=== PATIENT | male | born 1945 | race Two or more races ===

== ENCOUNTER 2021-12-04 10:00 | Observation (INO) | payer MEDICARE ==
[~2021-12-04] VITALS: Ht 165.1 cm; Wt 90.0 kg
--- NOTE | 2021-12-04 10:13 | PHYS DOC ---
Adult General Chief Complaint Chief Complaint: CHEST PAIN HPI HPI Patient is a 76 year old male who presents with chest pressure. Patient has history of CABG many years earlier. He comes to the ER today for evaluation of chest heaviness which she has been having over the last week. Heaviness is intermittent and he has not been able to identify any aggravating or alleviating factors. No radiation of the discomfort. Also complains of some worsening lower extremity edema but no dyspnea on exertion or orthopnea. Takes aspirin every day and already took his medications today. Does not currently complain of chest pain or heaviness during the initial interview. No fever, cough, chills Review of Systems Review of Systems Constitutional: Denies fever or chills Eyes: Denies change in visual acuity HENT: Denies nasal congestion Respiratory: Denies cough or shortness of breath Cardiovascular: No additional information not addressed in HPI GI: Denies abdominal pain, nausea : Denies dysuria or hematuria Musculoskeletal: Denies back pain Integument: Denies rash or skin lesions Neurologic: Denies headache Endocrine: Denies All other systems were reviewed and found to be within normal limits, except as documented in this note. Allergies Allergies Allergies Coded Allergies Type Severity Reaction Last Updated Verified No Known Drug Allergies 12/04/21 No Physical Exam Physical Exam Constitutional: Well developed, well nourished, no acute distress, non-toxic appearance HENT: Moist mucous membranes, nares patent, Eyes: PERRLA, EOMI Neck: Normal range of motion, Cardiovascular:Heart rate regular rhythm, no murmur Lungs & Thorax: Bilateral breath sounds clear to auscultation Abdomen: Bowel sounds normal, soft, no tenderness Skin: Warm, dry, no erythema, no rash Back: Normal ROM Extremities: No tenderness, no cyanosis, no clubbing, ROM intact, 1+ pitting edema bilateral LE's Neurologic: Alert and oriented X 3, normal motor function Psychologic: Affect normal Current Patient Data Vital Signs Vital Signs Date Time Temp Pulse Resp B/P (MAP) Pulse Ox O2 Delivery O2 Flow Rate FiO2 12/04/21 11:03 58 16 189/77 (114) 95 Room Air 12/04/21 10:16 98.2 98.2 Lab Values Laboratory Tests Test 12/04/21 10:29 White Blood Count 5.5 x10^3/uL (4.0-11.0) Red Blood Count 4.08 x10^6/uL (4.30-5.70) L Hemoglobin 12.8 g/dL (13.0-17.5) L Hematocrit 37.6 % (39.0-53.0) L Mean Corpuscular Volume 92 fL (79-100) Mean Corpuscular Hemoglobin 31 pg (25-35) Mean Corpuscular Hemoglobin Concent 34 g/dL (31-37) Red Cell Distribution Width 14.7 % (11.5-14.5) H Platelet Count 216 x10^3/uL (140-400) Neutrophils (%) (Auto) 56 % (31-73) Lymphocytes (%) (Auto) 27 % (24-48) Monocytes (%) (Auto) 9 % (0-9) Eosinophils (%) (Auto) 6 % (0-3) H Basophils (%) (Auto) 1 % (0-3) Neutrophils # (Auto) 3.1 x10^3/uL (1.8-7.7) Lymphocytes # (Auto) 1.5 x10^3/uL (1.0-4.8) Monocytes # (Auto) 0.5 x10^3/uL (0.0-1.1) Eosinophils # (Auto) 0.3 x10^3/uL (0.0-0.7) Basophils # (Auto) 0.1 x10^3/uL (0.0-0.2) Sodium Level 137 mmol/L (136-145) Potassium Level 3.8 mmol/L (3.5-5.1) Chloride Level 102 mmol/L (98-107) Carbon Dioxide Level 25 mmol/L (21-32) Anion Gap 10 (6-14) Blood Urea Nitrogen 15 mg/dL (8-26) Creatinine 1.3 mg/dL (0.7-1.3) Estimated GFR (Cockcroft-Gault) 53.4 Glucose Level 292 mg/dL (70-99) H Calcium Level 8.6 mg/dL (8.5-10.1) Troponin I High Sensitivity 63 ng/L (4-75) UG-Epm-H-Type Natriuretic Peptide 425 pg/mL (0-449) Laboratory Tests 12/04/21 10:29 Laboratory Tests 12/04/21 10:29 EKG EKG 10:15: EKG completed. Normal sinus rhythm. Nonspecific T wave abnormalities with very subtle T wave inversions in leads V4 through V6. No ST elevations to suggest STEMI Radiology/Procedures Radiology/Procedures [] Course & Med Decision Making Course & Med Decision Making Pertinent Labs and Imaging studies reviewed. (See chart for details) Seen and examined on arrival to his room. No acute distress and not actively having chest pain. Standard work-up is ordered. EKG does not reveal STEMI. HEART Score: 6 Hx: 1 EK Age: 1 Risk: 2 Trop: 1 11:32: No chest pain during the ER course but patient has hx of HLD, s/p CABG, HTN, DM. Elevated HEART score and will request admission for inpatient cardiology evaluation. Mr. Spicer is agreeable to this plan of care. He states had quadruple bypass at this hospital ten years earlier and is followed by Dr. Boyle. Dragon Disclaimer Dragon Disclaimer This electronic medical record was generated, in whole or in part, using a voice recognition dictation system. Departure Departure Referrals: RENETTA MA MD (PCP) KRISTOFER ESPINO DO December 04, 2021 10:13
[2021-12-04 10:42] LABS: BASO # 0.1 x10^3/uL (0.0-0.2); BASO % 1 % (0-3); EOS # 0.3 x10^3/uL (0.0-0.7); EOS % 6 % (0-3); HEMATOCRIT 37.6 % (39.0-53.0); HEMOGLOBIN 12.8 g/dL (13.0-17.5); LYMPH # 1.5 x10^3/uL (1.0-4.8); LYMPH % 27 % (24-48); MEAN CORPUSCULAR HEMOGLOBIN 31 pg (25-35); MEAN CORPUSCULAR HGB CONC 34 g/dL (31-37); MEAN CORPUSCULAR VOLUME 92 fL (79-100); MONO # 0.5 x10^3/uL (0.0-1.1); MONO % 9 % (0-9); NEUT # 3.1 x10^3/uL (1.8-7.7); NEUT % 56 % (31-73); PLATELET COUNT 216 x10^3/uL (140-400); RED BLOOD COUNT 4.08 x10^6/uL (4.30-5.70); RED CELL DISTRIBUTION WIDTH 14.7 % (11.5-14.5); WHITE BLOOD COUNT 5.5 x10^3/uL (4.0-11.0)
[2021-12-04 11:01] LABS: CALCIUM 8.6 mg/dL (8.5-10.1); CREATININE 1.3 mg/dL (0.7-1.3); GFR 53.4; POTASSIUM 3.8 mmol/L (3.5-5.1)
--- NOTE | 2021-12-04 11:18 | RAD ---
XR CHEST 1V INDICATION: chest pain COMPARISON STUDY: None. FINDINGS: Lungs: Elevation of the right hemidiaphragm. No pulmonary mass or consolidation. The tracheobronchial tree and hilar structures are normal. Pleura: No pleural effusion or pneumothorax. Heart and Mediastinum: Cardiomegaly. CABG. Atherosclerosis of thoracic aorta. IMPRESSION: No focal airspace disease. Electronically signed by: Ilan Last MD (12/04/2021 11:15 AM) [id number]
--- NOTE | 2021-12-04 12:46 | PDOC2 ---
MAYKEL BERNARD HR ANALYST 12/04/21 1246: CARDIAC CONSULT DATE OF CONSULT Date of Consult DATE: 12/04/21 TIME: 12:44 REASON FOR CONSULT Reason for Consult: Chest pain REFERRING PHYSICIAN Referring Physician: Dr. Wheat SOURCE Source: Chart review, Patient HISTORY OF PRESENT ILLNESS HISTORY OF PRESENT ILLNESS This is a 76 yo male who presented secondary to chest pain. Patient reports intermittent pressure in the central chest over the last 2 weeks. Associated with pain down the left arm. No associated dizziness, diaphoresis, palpitations, or shortness of breath. Has also had some mild LE edema bilaterally over the last couple of week. Does have a history of CAD s/p CABG. Reports compliance with medications. PAST MEDICAL HISTORY Cardiovascular: CAD, CHF, HTN, Hyperlipidemia GI: GERD Musculoskeletal: Osteoarthritis Renal/: Chronic renal insuff, Benign prostatic enlarg. Endocrine: Diabetes PAST SURGICAL HISTORY Past Surgical History: CABG FAMILY HISTORY Family History: Diabetes, Hypertension SOCIAL HISTORY Smoke: Quit ALCOHOL: none Drugs: None Lives: Alone ALLERGIES ALLERGIES: Coded Allergies: No Known Drug Allergies (Unverified , 12/04/21) ROS Review of System 14 point ROS conducted with pertinent positives noted above in HPI PHYSICAL EXAM General: Alert, Oriented X3, Cooperative, No acute distress HEENT: Atraumatic Lungs: Clear to auscultation Heart: Regular rate Abdomen: Soft, No tenderness Extremities: Other (1+ bilateral LE edema ) Skin: No significant lesion Neuro: Normal speech, Sensation intact Psych/Mental Status: Mental status NL, Mood NL MUSCULOSKELETAL: Osteoarthritic changes both hands VITALS/I&O VITALS/I&O: Vital Signs Date Time Temp Pulse Resp B/P (MAP) Pulse Ox O2 Delivery O2 Flow Rate FiO2 12/04/21 11:42 57 16 172/74 (106) 95 Room Air 12/04/21 10:16 98.2 98.2 LABS Lab: Laboratory Tests Test 12/04/21 10:29 White Blood Count 5.5 x10^3/uL (4.0-11.0) Red Blood Count 4.08 x10^6/uL (4.30-5.70) L Hemoglobin 12.8 g/dL (13.0-17.5) L Hematocrit 37.6 % (39.0-53.0) L Mean Corpuscular Volume 92 fL (79-100) Mean Corpuscular Hemoglobin 31 pg (25-35) Mean Corpuscular Hemoglobin Concent 34 g/dL (31-37) Red Cell Distribution Width 14.7 % (11.5-14.5) H Platelet Count 216 x10^3/uL (140-400) Neutrophils (%) (Auto) 56 % (31-73) Lymphocytes (%) (Auto) 27 % (24-48) Monocytes (%) (Auto) 9 % (0-9) Eosinophils (%) (Auto) 6 % (0-3) H Basophils (%) (Auto) 1 % (0-3) Neutrophils # (Auto) 3.1 x10^3/uL (1.8-7.7) Lymphocytes # (Auto) 1.5 x10^3/uL (1.0-4.8) Monocytes # (Auto) 0.5 x10^3/uL (0.0-1.1) Eosinophils # (Auto) 0.3 x10^3/uL (0.0-0.7) Basophils # (Auto) 0.1 x10^3/uL (0.0-0.2) Sodium Level 137 mmol/L (136-145) Potassium Level 3.8 mmol/L (3.5-5.1) Chloride Level 102 mmol/L (98-107) Carbon Dioxide Level 25 mmol/L (21-32) Anion Gap 10 (6-14) Blood Urea Nitrogen 15 mg/dL (8-26) Creatinine 1.3 mg/dL (0.7-1.3) Estimated GFR (Cockcroft-Gault) 53.4 Glucose Level 292 mg/dL (70-99) H Calcium Level 8.6 mg/dL (8.5-10.1) Troponin I High Sensitivity 63 ng/L (4-75) OQ-Ybl-A-Type Natriuretic Peptide 425 pg/mL (0-449) Laboratory Tests 12/04/21 10:29 Laboratory Tests 12/04/21 10:29 ECHOCARDIOGRAM ECHOCARDIOGRAM <Conclusion> The left ventricular systolic function is normal. The Ejection Fraction is 55-60%. There is normal LV segmental wall motion. Transmitral Doppler flow pattern is Grade I-abnormal relaxation pattern. Trace mitral regurgitation. Trace tricuspid regurgitation with an estimated PAP of 33 mmHg. There is no evidence of significant pericardial effusion. DATE: 06/23/20 [id number] STRESS TEST STRESS TEST Conclusion 1. Regadenoson cardioisotope stress test showed moderate sized inferolateral wall infarct without any ischemia. 2. Abnormal septal motion most probably secondary to postoperative state. The ejection fraction is calculated at 48%. 3. Low risk for cardiac events. DATE: 06/23/20 [id number] HEART CATH HEART CATH Hemodynamics. Left ventricle pressure 128/12, aortic root pressure 126/64. Coronaries. Left main. The left main had a proximal 40-50% lesion which caused dampening with 6 [place] diagnostic catheters. Left anterior descending. The LAD had a proximal 60% and a mid subtotal lesion. There was extensive collateralization throughout the left system. Left circumflex. The left circumflex had a mid 70% lesion. Right coronary artery. Right coronary had a mid 50% lesion in the distal subtotal to total occlusion. There was extensive collateralization from the left system. Left ventriculogram. The left ventricle showed inferior to the inferior apical hypokinesis. Ejection fraction was estimated at 40%. There was mild to moderate mitral regurgitation. <Conclusion> 3 vessel coronary artery disease with a left main lesion in a diabetic patient. Decreased LV systolic function with an ejection fraction of 40%. Mild to moderate mitral regurgitation. DATE: 08/31/15 0957 ASSESSMENT/PLAN ASSESSMENT/PLAN 1. Chest pain, mixed features; initial trop negative. 2. Accelerated hypertension 3. CAD s/p CABG 2016; Echo 2019: EF 50-55%. MPI 06/24 without ischemia . 4. Hyperlipidemia 5. Diabetes, II 6. CKD; stable Recommendations Trend troponin Echocardiogram Secondary prevention Resume home antiHTN therapy. Titrate as warranted Hydralazine IV PRN Will need further ischemic evaluation. Inpatient vs outpatient pending troponin trend, echocardiogram Supportive care KIRAN HER MD 12/05/21 0909: CARDIAC CONSULT ASSESSMENT/PLAN ASSESSMENT/PLAN Late entry for 12/04/2021 Patient seen and examined. Agree with above nurse practitioner note. Patient reports that he was [place] [address] [place] problems. I suspect his left arm pain may be transient hypotension related chest pain. Medical therapy for now and consider outpatient ischemic testing. MAYKEL BERNARD APRN December 04, 2021 12:46 KIRAN HER MD December 05, 2021 09:09
[2021-12-04 13:45] VITALS: BP 181/76
[2021-12-04] MEDS ORDERED: LEVO88TA4 PO (14:57)
[2021-12-04] MEDS ORDERED: AMLO-187 PO (14:57)
[2021-12-04] MEDS ORDERED: ATOR40TA59 PO (14:57)
[2021-12-04] MEDS ORDERED: TAMS0.4C97 PO (14:57)
[2021-12-04] MEDS ORDERED: METO25TA4 PO (14:57)
[2021-12-04] MEDS ORDERED: CHOL10004 PO (14:57)
[2021-12-04] MEDS ORDERED: PANT20TA2 PO (14:57)
[2021-12-04] MEDS ORDERED: FINA5TAB4 PO (14:57)
[2021-12-04] MEDS ORDERED: INSU100I13 SQ (14:57)
[2021-12-04] MEDS ORDERED: METF10007 PO (14:57)
[2021-12-04 15:00] VITALS: BP 190/81
[2021-12-04] MEDS ORDERED: DEXTROSE 50% 25 GM / 50ML DISP.SYRIN. IV PRN (15:00)
[2021-12-04] MEDS ORDERED: IV DEXTROSE 5% 250 ML BAG. IV PRN (15:00)
--- NOTE | 2021-12-04 15:37 | PDOC1 ---
History and Physical Date of Service: DOS: DATE: 12/04/21 TIME: 15:37 Chief Complaint: Chief Complain: Chest pressure left arm pain lower extremity swelling History of Present Illness: HPI: 76-year-old male presented to the emergency room complaining of chest pressure. Says he has been having this feeling intermittently over the past 2 weeks. No apparent cause. Also reporting to me some left arm pain not certain if it is radiation from the chest pressure. Denies any shortness of breath with this. All while this has been happening he has had worsening bilateral lower extremity edema. Has previously had a CABG. Follows with Dr. Boyle. Emergency room chest pain had notably improved. Given high risk and heart score was admitted for further work-up. Past Medical/Surgical History: PMH/PSH: CABG Allergies: Allergies: Coded Allergies: No Known Drug Allergies (Unverified , 12/04/21) Family History: Family History: Hypertension Social History: Social History: Denies alcohol tobacco drug use Current Medications: Current Medications Current Medications Insulin Human Lispro (HumaLOG) 0-9 UNITS TIDWMEALS SQ ; Start 12/04/21 at 17:00 Dextrose (Dextrose 50%-Water Syringe) 12.5 gm PRN Q15MIN PRN IV SEE COMMENTS; Start 12/04/21 at 15:00 Dextrose (Iv Dextrose 5%) 250 ml PRN Q15MIN PRN IV SEE COMMENTS; Start 12/04/21 at 15:00 Active Scripts Active Reported Atorvastatin Calcium 40 Mg Tablet 1 Tab PO QHS Levothyroxine Sodium 88 Mcg Tablet 1 Tab PO DAILY Amlodipine Besylate 10 Mg Tablet 10 Mg PO DAILY Vitamin D3 (Vitamin D) 25 Mcg Tablet 25 Mcg PO WEEKLY 1,000 UNITS = 25 MCG Flomax (Tamsulosin Hcl) 0.4 Mg Cap.er.24h 0.4 Mg PO DAILY Protonix (Pantoprazole Sodium) 20 Mg Tablet.dr 2 Tab PO DAILY Metoprolol Tartrate 25 Mg Tablet 1 Tab PO BID Finasteride 5 Mg Tablet 1 Tab PO DAILY Metformin Hcl 1,000 Mg Tablet 1,000 Mg PO BIDWMEALS Lantus Solostar (Insulin Glargine,Hum.rec.anlog) 100 Unit/1 Ml Insuln.pen 65 Unit SQ QHS ROS: Review of Systems Review of System Unless noted in HPI 14 point review of systems is negative Physical Exam: Vital Signs: Vital Signs Date Time Temp Pulse Resp B/P (MAP) Pulse Ox O2 Delivery O2 Flow Rate FiO2 12/04/21 15:00 97.5 68 19 190/81 (117) 97 Room Air 97.5 Physcial Exam: GEN: No apparent distress. Alert and oriented HEENT: Normal cephalic, atraumatic, external auditory canals are patent EYES: Extraocular muscles are intact, pupil are equally round and reactive to light and accommodation MUSCULOSKELETAL: Well developed , well nourished, good range of motion ENDOCRINE: No thyromegaly was palpated LYMPHATICS: No cervical chain or axillary nodes were noted HEMATOPOIETIC: No bruising NECK: Supple, no JVD, no thyromegaly was noted LUNGS: Clear to auscultation in all lung pelletier without rhonchi or wheezing HEART: RRR, S!, S2 present. Peripheral pulses intact, no obvious murmurs noted ABDOMEN: Soft, nontender. Positive bowel sounds, no organomegaly, normal bowel sounds EXTREMITIES: Without clubbing, cyanosis, or edema. Pedal pulses intact. Negative Homans sign NEUROLOGIC: Normal speech and tone. A&O x 3, moves all extremities, no obvious focal deficits PSYCHIATRIC: Normal affect, normal mood. Stable SKIN: No ulcerations or rashes, good skin turgor, no jaundice VASCULAR: Good capillary refill, neurovascular bundle appears to be intact Labs: Labs: Laboratory Tests Test 12/04/21 10:29 White Blood Count 5.5 x10^3/uL (4.0-11.0) Red Blood Count 4.08 x10^6/uL (4.30-5.70) Hemoglobin 12.8 g/dL (13.0-17.5) Hematocrit 37.6 % (39.0-53.0) Mean Corpuscular Volume 92 fL (79-100) Mean Corpuscular Hemoglobin 31 pg (25-35) Mean Corpuscular Hemoglobin Concent 34 g/dL (31-37) Red Cell Distribution Width 14.7 % (11.5-14.5) Platelet Count 216 x10^3/uL (140-400) Neutrophils (%) (Auto) 56 % (31-73) Lymphocytes (%) (Auto) 27 % (24-48) Monocytes (%) (Auto) 9 % (0-9) Eosinophils (%) (Auto) 6 % (0-3) Basophils (%) (Auto) 1 % (0-3) Neutrophils # (Auto) 3.1 x10^3/uL (1.8-7.7) Lymphocytes # (Auto) 1.5 x10^3/uL (1.0-4.8) Monocytes # (Auto) 0.5 x10^3/uL (0.0-1.1) Eosinophils # (Auto) 0.3 x10^3/uL (0.0-0.7) Basophils # (Auto) 0.1 x10^3/uL (0.0-0.2) Sodium Level 137 mmol/L (136-145) Potassium Level 3.8 mmol/L (3.5-5.1) Chloride Level 102 mmol/L (98-107) Carbon Dioxide Level 25 mmol/L (21-32) Anion Gap 10 (6-14) Blood Urea Nitrogen 15 mg/dL (8-26) Creatinine 1.3 mg/dL (0.7-1.3) Estimated GFR (Cockcroft-Gault) 53.4 Glucose Level 292 mg/dL (70-99) Calcium Level 8.6 mg/dL (8.5-10.1) Troponin I High Sensitivity 63 ng/L (4-75) ZC-Agc-F-Type Natriuretic Peptide 425 pg/mL (0-449) Laboratory Tests Test 12/04/21 10:29 White Blood Count 5.5 x10^3/uL (4.0-11.0) Red Blood Count 4.08 x10^6/uL (4.30-5.70) Hemoglobin 12.8 g/dL (13.0-17.5) Hematocrit 37.6 % (39.0-53.0) Mean Corpuscular Volume 92 fL (79-100) Mean Corpuscular Hemoglobin 31 pg (25-35) Mean Corpuscular Hemoglobin Concent 34 g/dL (31-37) Red Cell Distribution Width 14.7 % (11.5-14.5) Platelet Count 216 x10^3/uL (140-400) Neutrophils (%) (Auto) 56 % (31-73) Lymphocytes (%) (Auto) 27 % (24-48) Monocytes (%) (Auto) 9 % (0-9) Eosinophils (%) (Auto) 6 % (0-3) Basophils (%) (Auto) 1 % (0-3) Neutrophils # (Auto) 3.1 x10^3/uL (1.8-7.7) Lymphocytes # (Auto) 1.5 x10^3/uL (1.0-4.8) Monocytes # (Auto) 0.5 x10^3/uL (0.0-1.1) Eosinophils # (Auto) 0.3 x10^3/uL (0.0-0.7) Basophils # (Auto) 0.1 x10^3/uL (0.0-0.2) Sodium Level 137 mmol/L (136-145) Potassium Level 3.8 mmol/L (3.5-5.1) Chloride Level 102 mmol/L (98-107) Carbon Dioxide Level 25 mmol/L (21-32) Anion Gap 10 (6-14) Blood Urea Nitrogen 15 mg/dL (8-26) Creatinine 1.3 mg/dL (0.7-1.3) Estimated GFR (Cockcroft-Gault) 53.4 Glucose Level 292 mg/dL (70-99) Calcium Level 8.6 mg/dL (8.5-10.1) Troponin I High Sensitivity 63 ng/L (4-75) WD-Wrb-O-Type Natriuretic Peptide 425 pg/mL (0-449) Assessment/Plan Assessment/Plan Chest pain, left arm pain, bilateral lower extremity swelling. History CABG -Admit to obs for chest pain work-up. -Cardiology consulted in emergency room. -Continue to trend troponins overnight -We will check a left shoulder x-ray as chest pain has improved but patient is reporting arm pain still -DVT prophylaxis -Cardiac diet -Home meds as indicated. Justifications for Admission Other Justification ALENA URIBE MD December 04, 2021 15:37
[2021-12-04] MEDS ORDERED: ACETAMINOPHEN 325 MG TABLET. PO PRN (15:45)
[2021-12-04] MEDS ORDERED: ELECTROLYTE (NON-ICU) PROTOCOL. MC PRN (15:45)
[2021-12-04] MEDS ORDERED: ZOLPIDEM 5 MG TABLET. PO PRN (15:45)
[2021-12-04] MEDS ORDERED: ONDANSETRON PF 4 MG/2 ML VIAL. IVP PRN (15:45)
--- NOTE | 2021-12-04 16:48 | RAD ---
EXAMINATION: Left shoulder radiograph. VIEWS: 3 COMPARISON: 12/04/2021 INDICATION:76 years, Male, left shoulder pain. FINDINGS: No acute fracture, dislocation or subluxation. 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 No soft tissue swelling. Visualized lung is unremarkable. IMPRESSION: No acute osseous abnormality. Electronically signed by: Danyel Rizvi MD (12/04/2021 4:45 PM) [facility]
[2021-12-04] MEDS: metFORMIN 500 MG TABLET PO SCH (17:23)
[2021-12-04] MEDS: PANTOPRAZOLE 40 MG TABLET.DR. PO SCH (17:23)
[2021-12-04] MEDS: ASPIRIN ENTERIC COATED 81 MG TABLET.DR. PO SCH (17:23)
[2021-12-04] MEDS: HEPARIN for SUB-Q USE 5,000 UNIT/ML VIAL. SQ SCH ×2 (17:29→21:49)
[2021-12-04] MEDS: INSULIN LISPRO 300 UNITS/3 ML VIAL. SQ SCH (17:30)
[2021-12-04 19:00] VITALS: BP 175/73
[2021-12-04] MEDS ORDERED: INSULIN GLARGINE SYRINGE. SQ SCH (21:00)
[2021-12-04] MEDS ORDERED: ATORVASTATIN CALCIUM 40 MG TABLET. PO SCH (21:00)
[2021-12-04] MEDS: SENNOSIDES/DOCUSATE 8.6/50MG TABLET. PO SCH (21:36)
[2021-12-04] MEDS: METOPROLOL TART IMMED RELEASE 25 MG TABLET. PO SCH (21:36)
[2021-12-04] MEDS: hydrALAZINE 20 MG/ML VIAL. IVP PRN (21:37)
[2021-12-04 23:02] VITALS: BP 157/55
--- NOTE | 2021-12-05 02:56 | NUR ---
The patient has denied any chest pain, reports 2/10 on left arm discomfort, did receive hydralazine for elevated b/p earlier,continuing to monitor.
[2021-12-05 03:00] VITALS: BP 164/65
[2021-12-05] MEDS ORDERED: LEVOTHYROXINE 88 MCG TABLET PO SCH (06:00)
[2021-12-05] MEDS: HEPARIN for SUB-Q USE 5,000 UNIT/ML VIAL. SQ SCH ×3 (06:00→14:00)
--- NOTE | 2021-12-05 06:06 | NUR ---
Heparin not administered, due to potential procedure today
[2021-12-05 06:24] VITALS: BP 163/68
[2021-12-05] MEDS: hydrALAZINE 20 MG/ML VIAL. IVP PRN (06:26)
[2021-12-05 07:00] VITALS: BP 155/75
[2021-12-05] MEDS: SENNOSIDES/DOCUSATE 8.6/50MG TABLET. PO SCH (08:31)
[2021-12-05] MEDS: METOPROLOL TART IMMED RELEASE 25 MG TABLET. PO SCH (08:31)
[2021-12-05] MEDS: ASPIRIN ENTERIC COATED 81 MG TABLET.DR. PO SCH (08:32)
[2021-12-05] MEDS: PANTOPRAZOLE 40 MG TABLET.DR. PO SCH (08:32)
[2021-12-05] MEDS: metFORMIN 500 MG TABLET PO SCH (08:33)
[2021-12-05] MEDS: INSULIN LISPRO 300 UNITS/3 ML VIAL. SQ SCH ×2 (08:39→12:59)
[2021-12-05] MEDS ORDERED: FINASTERIDE 5 MG TABLET. PO SCH (09:00)
[2021-12-05] MEDS ORDERED: TAMSULOSIN 0.4 MG CAP.ER.24H. PO SCH (09:00)
[2021-12-05 09:07] LABS: CHOLESTEROL/HDL RATIO 4.1
--- NOTE | 2021-12-05 10:20 | PDOC ---
[employer] PROGRESS NOTE Date of Service DOS: DATE: 12/05/21 TIME: 10:19 Chief Complaint Chief Complaint Chest pain, left arm pain, bilateral lower extremity swelling. History CABG History of Present Illness History of Present Illness 12/05/2021 Patient seen Discussed with RN Discussed with case management Chart reviewed Will likely discharge this afternoon if okay with Vitals/I&O Vitals/I&O: Vital Signs Date Time Temp Pulse Resp B/P (MAP) Pulse Ox O2 Delivery O2 Flow Rate FiO2 12/05/21 08:32 67 155/75 12/05/21 07:00 19 Room Air 12/05/21 03:00 98.0 94 98.0 I & O 0 12/04/21 12/04/21 12/05/21 15:00 23:00 07:00 Intake Total 300 ml 500 ml Balance 300 ml 500 ml Physical Exam General: Alert, Oriented X3, Cooperative, No acute distress Heart: Regular rate Abdomen: Soft, No tenderness Extremities: Other (1+ bilateral LE edema ) Skin: No significant lesion Labs Labs: Laboratory Tests Test 12/04/21 10:29 12/04/21 15:01 12/04/21 17:13 12/04/21 18:48 White Blood Count 5.5 x10^3/uL (4.0-11.0) Red Blood Count 4.08 x10^6/uL (4.30-5.70) Hemoglobin 12.8 g/dL (13.0-17.5) Hematocrit 37.6 % (39.0-53.0) Mean Corpuscular Volume 92 fL (79-100) Mean Corpuscular Hemoglobin 31 pg (25-35) Mean Corpuscular Hemoglobin Concent 34 g/dL (31-37) Red Cell Distribution Width 14.7 % (11.5-14.5) Platelet Count 216 x10^3/uL (140-400) Neutrophils (%) (Auto) 56 % (31-73) Lymphocytes (%) (Auto) 27 % (24-48) Monocytes (%) (Auto) 9 % (0-9) Eosinophils (%) (Auto) 6 % (0-3) Basophils (%) (Auto) 1 % (0-3) Neutrophils # (Auto) 3.1 x10^3/uL (1.8-7.7) Lymphocytes # (Auto) 1.5 x10^3/uL (1.0-4.8) Monocytes # (Auto) 0.5 x10^3/uL (0.0-1.1) Eosinophils # (Auto) 0.3 x10^3/uL (0.0-0.7) Basophils # (Auto) 0.1 x10^3/uL (0.0-0.2) Sodium Level 137 mmol/L (136-145) Potassium Level 3.8 mmol/L (3.5-5.1) Chloride Level 102 mmol/L (98-107) Carbon Dioxide Level 25 mmol/L (21-32) Anion Gap 10 (6-14) Blood Urea Nitrogen 15 mg/dL (8-26) Creatinine 1.3 mg/dL (0.7-1.3) Estimated GFR (Cockcroft-Gault) 53.4 Glucose Level 292 mg/dL (70-99) Calcium Level 8.6 mg/dL (8.5-10.1) Troponin I High Sensitivity 63 ng/L (4-75) 74 ng/L (4-75) 82 ng/L (4-75) NT-Dax-H-Type Natriuretic Peptide 425 pg/mL (0-449) Thyroid Stimulating Hormone (TSH) 4.454 uIU/mL (0.358-3.74) Glucose (Fingerstick) 291 mg/dL (70-99) Test 12/04/21 21:19 12/05/21 07:12 12/05/21 08:20 Glucose (Fingerstick) 351 mg/dL (70-99) 206 mg/dL (70-99) Triglycerides Level 223 mg/dL (0-150) Cholesterol Level 158 mg/dL (0-200) LDL Cholesterol, Calculated 74 mg/dL (0-100) VLDL Cholesterol, Calculated 45 mg/dL (0-40) Non-HDL Cholesterol Calculated 119 mg/dL (0-129) HDL Cholesterol 39 mg/dL (40-60) Cholesterol/HDL Ratio 4.1 Assessment and Plan Assessmemt and Plan Chest pain, left arm pain, bilateral lower extremity swelling. History CABG Plan is discharge if okay with cardiology Comment Review of Relevant I have reviewed the following items ying (where applicable) has been applied. Medications: Current Medications Medications (Trade) Dose Ordered Sig/Olivier Route PRN Reason Start Time Stop Time Status Last Admin Dose Admin Insulin Human Lispro (HumaLOG) 0-9 UNITS TIDWMEALS SQ 12/04/21 17:00 12/05/21 08:39 Senna/Docusate Sodium (Senna Plus) 1 tab BID PO 12/04/21 21:00 12/05/21 08:31 Heparin Sodium (Porcine) (Heparin Sodium) 5,000 unit Q8HRS SQ 12/04/21 16:00 12/05/21 06:33 Amlodipine Besylate (Norvasc) 10 mg DAILY PO 12/04/21 16:00 12/05/21 08:32 Atorvastatin Calcium (Lipitor) 40 mg QHS PO 12/04/21 21:00 12/04/21 21:36 Finasteride (Proscar) 5 mg DAILY PO 12/05/21 09:00 12/05/21 08:31 Levothyroxine Sodium (Synthroid) 88 mcg DAILY06 PO 12/05/21 06:00 12/05/21 06:25 Metoprolol Tartrate (Lopressor) 25 mg BID PO 12/04/21 21:00 12/05/21 08:31 Tamsulosin HCl (Flomax) 0.4 mg DAILY PO 12/05/21 09:00 12/05/21 08:30 Insulin Glargine (Lantus Syringe) 65 unit QHS SQ 12/04/21 21:00 12/04/21 21:48 Metformin HCl (Glucophage) 1,000 mg BIDWMEALS PO 12/04/21 17:00 12/05/21 08:33 Pantoprazole Sodium (Protonix) 40 mg DAILYAC PO 12/04/21 16:30 12/05/21 08:32 Hydralazine HCl (Apresoline Inj) 10 mg PRN Q4HRS PRN IVP ELEVATED BP, SEE COMMENTS 12/04/21 15:45 12/05/21 06:26 Aspirin (Ecotrin) 81 mg DAILYWBKFT PO 12/04/21 17:00 12/05/21 08:32 Justifications for Admission Other Justification GABRIEL LARRY III DO December 05, 2021 10:20
[2021-12-05 11:00] VITALS: BP 135/55
--- NOTE | 2021-12-05 11:43 | CARD ---
MR#: [id number] Date of Study: 12/05/2021 Ordering Physician: MAYKEL BERNARD, Referring Physician: MAYKEL BERNARD, Tech: Mary Carmen Lucio [facility] APPROVED REPORT EXAM: Two-dimensional and M-mode echocardiogram with Doppler and color Doppler. Other Information Quality : GoodHR: 66bpm Rhythm : NSR INDICATION Cardiac Disease: CAD Chest Pain Surgery/Intervention CABG: RISK FACTORS Hypertension Obesity Hyperlipidemia Diabetes 2D DIMENSIONS RVDd3.7 (2.9-3.5cm)Left Atrium(2D)5.1 (1.6-4.0cm) IVSd1.3 (0.7-1.1cm)Aortic Root(2D)3.6 (2.0-3.7cm) LVDd4.6 (3.9-5.9cm)LVOT Diameter2.4 (1.8-2.4cm) PWd1.3 (0.7-1.1cm)LVDs3.1 (2.5-4.0cm) FS (%) 33.0 %SV60.7 ml LVEF(%)61.6 (>50%) Aortic Valve AoV Peak Nadeem.132.0cm/sAoV VTI29.4cm AO Peak GR.7.0mmHgLVOT Peak Nadeem.106.4cm/s AO Mean GR.3mmHgAVA (VMAX)3.76cm2 Mitral Valve MV E Siaqfgev91.4cm/sMV DECEL [id number] MV A Vkbrehmv374.8cm/sE/A Ratio0.8 Pulmonary Valve PV Peak Tjsfvhem729.1cm/s Tricuspid Valve TR P. Fomgbldt567mw/sTR Peak Gr.40mmHg LEFT VENTRICLE The left ventricle is normal size. There is mild concentric left ventricular hypertrophy. The left ve ntricular systolic function is normal and the ejection fraction is within normal range. Estimated eje ction fraction 60%. There is normal LV segmental wall motion. Transmitral Doppler flow pattern is Gra de I-abnormal relaxation pattern. RIGHT VENTRICLE The right ventricle is normal size. There is normal right ventricular wall thickness. The right ventr icular systolic function is normal. ATRIA The left atrium is mildly dilated. The right atrium size is normal. The interatrial septum is intact with no evidence for an atrial septal defect or patent foramen ovale as noted on 2-D or Doppler imagi ng. AORTIC VALVE The aortic valve is normal in structure and function. Doppler and Color Flow revealed no significant aortic regurgitation. There is no significant aortic valvular stenosis. MITRAL VALVE The mitral valve is normal in structure and function. There is no evidence of mitral valve prolapse. There is no mitral valve stenosis. Doppler and Color-flow revealed mild mitral regurgitation. TRICUSPID VALVE The tricuspid valve is normal in structure and function. Doppler and Color Flow revealed mild tricusp id regurgitation. Estimated PAP 40-45 mmHg. There is no tricuspid valve stenosis. PULMONIC VALVE Doppler and Color Flow revealed mild pulmonic valvular regurgitation. There is no pulmonic valvular s tenosis. GREAT VESSELS The aortic root is normal in size. The ascending aorta is normal in size. The IVC is normal in size a nd collapses >50% with inspiration. PERICARDIAL EFFUSION There is no evidence of significant pericardial effusion. Critical Notification Critical Value: No <Conclusion> The left ventricular systolic function is normal and the ejection fraction is within normal range. E stimated ejection fraction 60%. There is normal LV segmental wall motion. Doppler and Color-flow revealed mild mitral regurgitation. Doppler and Color Flow revealed mild tricuspid regurgitation. Estimated PAP 40-45 mmHg. Signed by : Rayo Boyle, Electronically Approved : 12/05/2021 11:42:47
--- NOTE | 2021-12-05 12:34 | PDOC ---
CLEMENTE PEREZ DEDICATED OWNER OPERATOR 12/05/21 1234: CARDIO Progress Notes Date and Time Date of Service 12/05/2021 Time of Evaluation 1220 Subjective Subjective: No Chest Pain, No shortness of breath, No Palpitations Vitals Vitals Vital Signs Date Time Temp Pulse Resp B/P (MAP) Pulse Ox O2 Delivery O2 Flow Rate FiO2 12/05/21 11:00 97.9 62 18 135/55 (81) 96 Room Air 97.9 Weight Weight [ ] Input and Output Intake and Output Intake and Output 12/05/21 07:00 Intake Total 800 ml Balance 800 ml Intake Oral 800 ml # Voids 2 Laboratory Labs Laboratory Tests Test 12/04/21 15:01 12/04/21 17:13 12/04/21 18:48 12/04/21 21:19 Troponin I High Sensitivity 74 ng/L (4-75) 82 ng/L (4-75) Glucose (Fingerstick) 291 mg/dL (70-99) 351 mg/dL (70-99) Test 12/05/21 07:12 12/05/21 08:20 12/05/21 11:43 Glucose (Fingerstick) 206 mg/dL (70-99) 245 mg/dL (70-99) Triglycerides Level 223 mg/dL (0-150) Cholesterol Level 158 mg/dL (0-200) LDL Cholesterol, Calculated 74 mg/dL (0-100) VLDL Cholesterol, Calculated 45 mg/dL (0-40) Non-HDL Cholesterol Calculated 119 mg/dL (0-129) HDL Cholesterol 39 mg/dL (40-60) Cholesterol/HDL Ratio 4.1 Physical Exam HEENT: Neck Supple W Full Motion Chest: Symmetric LUNGS: Clear to Auscultation Heart: S1S2, RRR (SR) Abdomen: Soft N/T Extremities: No Edema, No Calf Tenderness Neurology: alert, oriented, follow commands Assessment Assessment 1. Chest pain, mixed features. Good METS. EF and WM nml per TTE 2. Accelerated hypertension: improved 3. CAD s/p CABG 2015; Echo 2018: EF 50-55%. MPI 06/24 without ischemia . 4. Hyperlipidemia 5. Diabetes, II 6. CKD; stable possbly stage 3 7. Mild troponin elevation: possibly from uncontrolled HTN Recommendations Continue metoprolol. Continue norvasc. Will add low dose lisinopril. HBPM. Titrate as an outpt Secondary prevention Outpt MPI Follow up in office as scheduled on January 17 at 9:45 AM Justicifation of Admission Dx: Justifications for Admission: Justification of Admission Dx: Yes KIRAN HER MD 12/05/21 1454: CARDIO Progress Notes Plan Plan The patient was seen and interviewed as well as examined at the bedside. The chart was reviewed. The case was discussed. Agree with the plan of care. CLEMENTE PEREZ APRN December 05, 2021 12:34 KIRAN HER MD December 05, 2021 14:54
[2021-12-05] MEDS ORDERED: LISI5TAB15 PO (12:52)
[2021-12-05 15:00] VITALS: BP 154/66
--- NOTE | 2021-12-05 15:38 | NUR ---
Patient escorted out to main entrance by Natalie KEITA. IV and telemonitor discontinued.
--- NOTE | 2021-12-05 19:12 | EKG ---
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
--- NOTE | 2021-12-06 09:39 | DS ---
DATE OF DISCHARGE: 12/05/2021 ADMITTING DIAGNOSIS: Chest pain. DISCHARGE DIAGNOSES: Atypical chest pain, history of coronary bypass surgery in 2016, accelerated hypertension, hyperlipidemia, diabetes, chronic kidney disease. CONSULTS: Cardiology. PROCEDURES: None. HOSPITAL COURSE: The patient is a pleasant middle-aged male who presented with chest pain. He had known coronary artery disease. He was admitted. We consulted Cardiology, trended his troponins, did serial EKGs, got an echo. Yesterday, I saw and examined him. He is doing well. Cardiology was okay with him going home, will be discharged home. DISPOSITION: Home. ACTIVITY: As tolerated. DIET: Low sodium. DISCHARGE MEDICATIONS: Please see the MRAD. Lisinopril 5 a day, amlodipine 10 a day, atorvastatin 40 a day, vitamin D3, finasteride 5 a day, Lantus insulin 65 at bedtime, Synthroid 88 a day, metformin 1000 b.i.d., metoprolol 25 b.i.d., Protonix 20 a day and Flomax 0.4 a day. Total time 34 minutes. CALVIN/VANDANA DR: George TID: [id number]
== END 2021-12-05 15:38 | disposition home or self-care (01) ==
LOC: ER 10:00 → ED HOLD 11:26 → 2 NORTH 13:45
PROVIDERS: ADMIT Student in an Organized Health Care Education/Training Program; ATTEND Student in an Organized Health Care Education/Training Program
DX: R07.89 Other chest pain (principal); M79.602 Pain in left arm; M79.89 Other specified soft tissue disorders; Z95.1 Presence of aortocoronary bypass graft; I13.0 Hypertensive heart and chronic kidney disease with heart failure and stage 1 through stage 4 chronic kidney disease, or unspecified chronic kidney disease; I50.9 Heart failure, unspecified; N18.30 Chronic kidney disease, stage 3 unspecified; E11.22 Type 2 diabetes mellitus with diabetic chronic kidney disease; I25.10 Atherosclerotic heart disease of native coronary artery without angina pectoris; N40.0 Benign prostatic hyperplasia without lower urinary tract symptoms; M19.90 Unspecified osteoarthritis, unspecified site; E78.5 Hyperlipidemia, unspecified; Z79.82 Long term (current) use of aspirin; Z79.4 Long term (current) use of insulin; Z79.84 Long term (current) use of oral hypoglycemic drugs; Z87.891 Personal history of nicotine dependence; Z79.899 Other long term (current) drug therapy
CPT/HCPCS: 36415; 71045; 73030; 80048; 80061; 82962; 83880; 84443; 84484; 85025; 93005; 93306; 96372; 96374; 96376; 99285; G0378; J0360; J1644; J1815; G0379; C8929